=== PATIENT | female | born 1980 ===

== ENCOUNTER 2025-03-04 09:03 | Emergency (ER) | payer OTHER, SELFPAY ==
[2025-03-04 09:04] VITALS: BP 170/89; PULSE 84; RESP 16; TEMP 36.8; O2SAT 97
[2025-03-04 09:28] LABS: Abs Immature Grans 0.01 10^3/uL (0.0-0.06); HCT 31.7 % (36.0-46.0); HGB 10.2 g/dL (11.2-15.7); Immature Grans % 0.2 %; MCH 26.8 pg (27.0-33.0); MCHC 32.2 % (32.0-36.0); MCV 83 fL (80-95); MPV 8.8 fL (8.0-11.0); Platelet Count 216 10^3/uL (130-400); RBC 3.81 10^6/uL (3.93-5.22); RDW 13.2 % (11.7-14.6); RDW-SD 40.3 fL; WBC 6.09 10^3/uL (4.4-10.8)
[2025-03-04 10:02] LABS: ALT 16 U/L (14-59); AST 12 U/L (15-37); Albumin 3.8 g/dL (3.4-5.0); Alkaline Phosphatase 83 U/L (46-116); Anion Gap 10.7 mmol/L (3-11); BUN 38 mg/dL (7-18); Bilirubin, Total 0.3 mg/dL (0.2-1.0); CO2 24.3 mmol/L (21.0-32.0); Calcium 8.9 mg/dL (8.5-10.1); Chloride 104 mmol/L (98-107); Glucose 104 mg/dL (74-106); Potassium 4.3 mmol/L (3.5-5.1); Sodium 139 mmol/L (136-145); Total Protein 7.9 g/dL (6.4-8.2)
--- NOTE | 2025-03-04 10:15 | DI.US_ITS ---
Exam(s) US PELVIS TRANSVAGINAL EXAM: US PELVIS TRANSVAGINAL CLINICAL HISTORY: vaginal bleeding TECHNIQUE: Ultrasound of the pelvis was performed both transabdominal and transvaginal. COMPARISON: No exams were available for comparison FINDINGS: UTERUS: Nongravid and anteverted Measures 9 cm length x 5.4 cm AP x 6.4 cm wide. There are no uterine fibroids. Endometrial thickness measures 9 mm and appears homogeneous There is no fluid in the endometrial canal. CERVIX: There few nabothian cysts in the cervix. RIGHT OVARY: Measures 1.7 x 1.5 x 2 point cm Contains a 1.5 cm cyst. Normal blood flow. LEFT OVARY: Measures 2.9 x 1.2 x 2.2 cm No significant cysts nor masses evident in the left ovary. Normal blood flow. CUL-DE-SAC: There is small amount of fluid in the cul-de-sac. IMPRESSION: 1. Normal appearing uterus and age-appropriate endometrium. 2. There is a 1.5 cm cyst in the right ovary. 3. Small amount of fluid in the cul-de-sac. DATA REPOSITORY:
[2025-03-04] MEDS: medroxyPROGESTERone 10 MG TAB PO (12:08)
--- NOTE | 2025-03-04 12:32 | ED.GENADUL_ITS ---
Discharge Plan Disposition Patient Disposition: Home Condition: Stable Discharge Details Clinical Impression: Abnormal vaginal bleeding, CKD (chronic kidney disease) Primary Care Provider: Kamilah Sahni ED Provider: Nick Davis Home Meds and New Rx's Prescriptions: New medroxyprogesterone [Provera] 10 mg tablet 10 mg PO DAILY Qty: 30 0RF Discharge Instructions Instructions: Chronic kidney disease, Heavy Periods ED Additional Instructions: Diagnostic labs were performed today. Your hemoglobin is 10.2. Your creatinine is 4.3 (estimated GFR 12.3), You have been started on Provera, this is a hormone to help control the uterine bleeding. Please follow-up with your disc pad grinding machine feeder. Call today. You have expressed interest in switching to [facility] gyne[facility]. I will refer you for follow-up with our team. Please follow-up with your formulator. Return to the emergency department immediately for any worsening or new concerning symptoms including increased bleeding, feeling lightheaded, or any other worrisome symptoms. Stand Alone Forms: Portal Information Referrals: Kala Lopez DO [OSTEOPATHIC DOCTOR, Obstetrics] Discharge Data Discharge Date/Time-TO BE ENTERED AT DEPARTURE: 03/04/25 12:46 HPI General Date/Time Provider Initiated Documentation: 03/04/25 09:09 . Limitations to Documentation: no limitations . Information obtained by: patient . HPI Narrative: HISTORY OF PRESENT ILLNESS This is a 44-year-old female with a history of stage IV kidney disease presenting with vaginal bleeding. The patient reports experiencing heavy vaginal bleeding since yesterday, soaking through a super tampon every 20 minutes. She had a similar episode in 11/2024 that required a blood transfusion. She has not had normal menstrual periods for over 2.5 years, since the diagnosis of her kidney disease. Her disc pad grinding machine feeder conducted an examination in 10/2024 and found no abnormalities. She has not undergone any tests or ultrasounds to investigate the cause of her heavy bleeding. The patient reports no pain associated with the current episode of bleeding. She also reports no other medical conditions apart from her kidney disease and high blood pressure. She does not have high cholesterol, heart disease, or lung disease. The patient does not smoke or use drugs. She is not on any blood thinners or aspirin. She reports no bleeding from other sites. She has had blood drawn since 11/2024 during her nephrology visits. She was informed that her creatinine level was 14 percent at her last visit. She reports feeling well overall but experiences a sensation of her kidneys pulsating in her lower back, which started yesterday. She reports no burning sensation during urination. She has never been . She has not had a pelvic ultrasound since 11/2024. She reports no abdominal pain. She changed her tampon once today, which was soaked with blood and clots. Related Data Home Medications Medication Instructions Recorded Confirmed medroxyprogesterone 10 mg tablet 10 mg PO DAILY #30 ta bs 03/04/25 (Provera) Previous Rx's Medication Instructions Recorded medroxyprogesterone 10 mg tablet 10 mg PO DAILY #30 ta bs 03/04/25 (Provera) Allergies Allergy/AdvReac Type Severity Reaction Status Date / Time No Known Allergies Allergy Unverified 03/04/25 09:06 General Stated Complaint: NUCLEAR P[employer]IC CATHY: 3 Review of Systems All systems reviewed & are unremarkable except as noted in HPI and below Constitutional Constitutional: Denies fever(s) Exam Const General: cooperative and no acute distress [facility] Mouth: moist mucous membranes Eyes Conjunctivae: normal conjunctivae Sclera: normal sclerae Resp Auscultation: clear to auscultation bilaterally, no rales, no rhonchi and no wheezes Cardio Rate: regular rate and not tachycardic Rhythm: regular rhythm GI Palpation: soft, not firm, no guarding, no masses, not rigid and nontender Skin General skin exam: no rashes or lesions noted Neuro General: patient alert, patient awake and tone normal Extrem General: no edema Psych Appearance: grossly normal Mental Status: mental status grossly normal Course Vital Signs Vital signs: Vital Signs Temperature 36.8 C 03/04/25 09:04 Pulse 84 03/04/25 09:04 Respiratory Rate 16 03/04/25 09:04 Blood Pressure 170/89 H 03/04/25 09:04 Pulse Oximetry 97 03/04/25 09:04 Temperature 36.8 C 03/04/25 09:04 Temperature Source Oral 03/04/25 09:04 Pulse 84 03/04/25 09:04 Respiratory Rate 16 03/04/25 09:04 Blood Pressure 170/89 H 03/04/25 09:04 Blood Pressure Position Sitting 03/04/25 09:04 Pulse Oximetry 97 03/04/25 09:04 Oxygen Delivery Method Room Air 03/04/25 09:04 Oxygen Flow Rate 0 03/04/25 09:04 Pain Level 7 03/04/25 09:04 Lab/Test Results Lab/Test Results: Laboratory Tests Range/Units 03/04/25 09:19 WBC (4.4-10.8) 10^3/uL 6.09 RBC (3.93-5.22) 10^6/uL 3.81 L Hgb (11.2-15.7) g/dL 10.2 L Hct (36.0-46.0) % 31.7 L MCV (80-95) fL 83 MCH (27.0-33.0) pg 26.8 L MCHC (32.0-36.0) % 32.2 RDW (11.7-14.6) % 13.2 Plt Count (130-400) 10^3/uL 216 MPV (8.0-11.0) fL 8.8 Immature Gran % % 0.2 Neutrophils % % 64.7 Lymphocytes % % 25.8 Monocytes % % 6.2 Eosinophils % % 2.6 Basophils % % 0.5 Nucleated RBC % (0.0-0.3) % 0.0 Absolute Neutrophils (1.2-6.7) 10^3/uL 3.94 Absolute Lymphocytes (1.2-3.4) 10^3/uL 1.57 Absolute Monocytes (0.1-0.8) 10^3/uL 0.38 Absolute Eosinophils (0.0-0.7) 10^3/uL 0.16 Absolute Basophils (0.0-0.2) 10^3/uL 0.03 Sodium (136-145) mmol/L 139 Potassium (3.5-5.1) mmol/L 4.3 Chloride (98-107) mmol/L 104 Carbon Dioxide (21.0-32.0) mmol/L 24.3 Anion Gap (3-11) mmol/L 10.7 BUN (7-18) mg/dL 38 H Creatinine (0.55-1.02) mg/dL 4.3 H* Est GFR (CKD-EPI 2020) (mL/min/1.73m2) 12.30 Glucose (74-106) mg/dL 104 Calcium (8.5-10.1) mg/dL 8.9 Total Bilirubin (0.2-1.0) mg/dL 0.3 AST (15-37) U/L 12 L ALT (14-59) U/L 16 Alkaline Phosphatase (46-116) U/L 83 Total Protein (6.4-8.2) g/dL 7.9 Albumin (3.4-5.0) g/dL 3.8 ABO/Rh A Positive Antibody Screen NEGATIVE Medical Decision Making ASSESSMENT AND PLAN Initial Assessment: 44-year-old female with history of chronic kidney disease here with heavy vaginal bleeding since yesterday. History of similar episode in November requiring transfusion. Stage IV kidney disease. Patient hypertensive on arrival. No vaginal hemorrhage. Differential Diagnosis: - Dysfunctional uterine bleeding - Anemia - Acute kidney injury ED Course: - Labs reviewed, no CECIL, hemoglobin at baseline - Pelvic ultrasound interpreted by radiology: - I consulted gynecology who recommends starting Provera 10 mg daily and recommends outpatient follow-up. - Patient reassessed and continues to have no vaginal hemorrhage. Hemodynamically stable. Patient stable for discharge. Usual and customary discharge instructions reviewed. Clinical Impression: - heavy vaginal bleeding - Stage IV kidney disease Disposition: - Plan for discharge with close outpatient follow-up with her formulator and gynecology Patient Education: Discussed relationship between kidney disease and vaginal bleeding. Explained potential causes of bleeding and planned ultrasound. This document was written with the assistance of HUGH Edwards. The patient consented to its use. Lab Data Lab results reviewed: Yes I reviewed the patient's lab results. Labs: Laboratory Tests Range/Units 03/04/25 09:19 WBC (4.4-10.8) 10^3/uL 6.09 RBC (3.93-5.22) 10^6/uL 3.81 L Hgb (11.2-15.7) g/dL 10.2 L Hct (36.0-46.0) % 31.7 L MCV (80-95) fL 83 MCH (27.0-33.0) pg 26.8 L MCHC (32.0-36.0) % 32.2 RDW (11.7-14.6) % 13.2 Plt Count (130-400) 10^3/uL 216 MPV (8.0-11.0) fL 8.8 Immature Gran % % 0.2 Neutrophils % % 64.7 Lymphocytes % % 25.8 Monocytes % % 6.2 Eosinophils % % 2.6 Basophils % % 0.5 Nucleated RBC % (0.0-0.3) % 0.0 Absolute Neutrophils (1.2-6.7) 10^3/uL 3.94 Absolute Lymphocytes (1.2-3.4) 10^3/uL 1.57 Absolute Monocytes (0.1-0.8) 10^3/uL 0.38 Absolute Eosinophils (0.0-0.7) 10^3/uL 0.16 Absolute Basophils (0.0-0.2) 10^3/uL 0.03 Sodium (136-145) mmol/L 139 Potassium (3.5-5.1) mmol/L 4.3 Chloride (98-107) mmol/L 104 Carbon Dioxide (21.0-32.0) mmol/L 24.3 Anion Gap (3-11) mmol/L 10.7 BUN (7-18) mg/dL 38 H Creatinine (0.55-1.02) mg/dL 4.3 H* Est GFR (CKD-EPI 2020) (mL/min/1.73m2) 12.30 Glucose (74-106) mg/dL 104 Calcium (8.5-10.1) mg/dL 8.9 Total Bilirubin (0.2-1.0) mg/dL 0.3 AST (15-37) U/L 12 L ALT (14-59) U/L 16 Alkaline Phosphatase (46-116) U/L 83 Total Protein (6.4-8.2) g/dL 7.9 Albumin (3.4-5.0) g/dL 3.8 ABO/Rh A Positive Antibody Screen NEGATIVE PFSH All Active Problems (Updated 03/04/25 @ 12:35 by Nick Davis MD) CKD (chronic kidney disease) (Chronic) Abnormal vaginal bleeding (Acute) Social History Smoking/Tobacco Use Status: Never Smoking risk assessment performed?: Yes Alcohol Intake: never Substance use type: does not use
[2025-03-04 12:41] VITALS: BP 121/75; PULSE 67; RESP 16; O2SAT 97
== END 2025-03-04 12:46 | disposition home or self-care (01) ==
PROVIDERS: Emergency Provider Student in an Organized Health Care Education/Training Program; PCP Nurse Practitioner Family
DX: N93.9 Abnormal uterine and vaginal bleeding, unspecified (principal); N18.9 Chronic kidney disease, unspecified
CPT/HCPCS: 99284 ×2; 80053; 86850; 86900; 86901; 76830; 76856; 85025

== ENCOUNTER 2025-03-07 13:51 | Outpatient (CLI) | payer OTHER, SELFPAY ==
[2025-03-07 13:20] LABS: Anion Gap 10.2 mmol/L (3-11); BUN 32 mg/dL (9-23); CO2 23.8 mmol/L (20.0-31.0); Calcium 8.9 mg/dL (8.3-10.6); Chloride 106 mmol/L (98-107); Glucose 92 mg/dL (74-106); Potassium 4.0 mmol/L (3.5-5.1); Sodium 140 mmol/L (136-145)
== END 2025-03-07 13:52 | disposition home or self-care (01) ==
PROVIDERS: PCP Nurse Practitioner Family; Visit Provider Internal Medicine Nephrology
DX: N18.5 Chronic kidney disease, stage 5 (principal)
CPT/HCPCS: 36415; 80048

== ENCOUNTER 2025-03-20 08:58 | Outpatient (CLI) | payer OTHER, SELFPAY ==
[2025-03-20 09:04] LABS: Abs Immature Grans 0.02 10^3/uL (0.0-0.06); HCT 30.4 % (36.0-46.0); HGB 10.0 g/dL (11.2-15.7); Immature Grans % 0.3 %; MCH 27.5 pg (27.0-33.0); MCHC 32.9 % (32.0-36.0); MCV 84 fL (80-95); MPV 8.5 fL (8.0-11.0); Platelet Count 193 10^3/uL (130-400); RBC 3.64 10^6/uL (3.93-5.22); RDW 13.4 % (11.7-14.6); RDW-SD 41.0 fL; WBC 6.90 10^3/uL (4.4-10.8)
[2025-03-20 09:32] LABS: TSH (W/Ref FT4) 1.64 uIU/mL (0.55-4.78)
[2025-03-20 09:33] LABS: Ferritin 15 ng/mL (7-271)
[2025-03-20 10:17] LABS: Iron 88 ug/dL (50-170); Total Iron Binding Capacity 275 ug/dL (250-425); Transferrin Sat 32 % (15-50)
== END 2025-03-20 08:59 | disposition home or self-care (01) ==
LOC: LBO 08:59
PROVIDERS: PCP Nurse Practitioner Family; Visit Provider Obstetrics & Gynecology
DX: N93.9 Abnormal uterine and vaginal bleeding, unspecified (principal)
CPT/HCPCS: 36415; 82728; 83540; 83550; 84443; 85025